=== PATIENT | female | born 1960 | race Caucasian/White ===

== ENCOUNTER → 2020-11-02 10:25 | Outpatient (CLI) | payer OTHER, SELFPAY ==
--- NOTE | 2020-11-02 10:26 | DI.US.S_ITS ---
PROCEDURE: US PELVIC COMPLETE INDICATIONS: MASS TECHNIQUE: Real-time scanning was performed of the pelvic organs, with image documentation. Additional endovaginal scanning was necessary due to incomplete visualization of the adnexal and endometrial structures by transabdominal scanning. COMPARISON: None. FINDINGS: Uterus: Uterus is normal in size at 6.9 x 2.7 x 3.7 cm. Uterus is retroverted. The endometrium measures 1.9 mm in combined thickness. Ovaries: There is a large 14.2 x 9.9 x 11.0 centimeter complex right adnexal cyst. Left ovary measures 2.2 x 1.1 x 1.0 centimeters and appears sonographically normal. Other: No pathologic free abdominal or pelvic fluid. IMPRESSION: 14.2 x 9.9 x 11.0 centimeter complex right adnexal cyst. Lesion may represent a large endometrioma, however other neoplastic processes including malignancy are not excluded by this study. Recommend gynecologic consultation and MRI of the pelvis for additional evaluation. Dictated by: Kelsie Bird MD, PhD on 11/02/2020 at 13:26 Approved by: Kelsie Bird MD, PhD on 11/02/2020 at 13:29
== END ==
PROVIDERS: Family Provider Family Medicine; PCP Physician Assistant; Referring Provider Physician Assistant; Visit Provider Physician Assistant
DX: R19.00 Intra-abdominal and pelvic swelling, mass and lump, unspecified site (principal)
CPT/HCPCS: 76830; 76856

== ENCOUNTER → 2020-11-11 14:00 | Outpatient (CLI) | payer OTHER, SELFPAY ==
[2020-11-11 15:14] LABS: Cancer Antigen 125 12.7 U/mL (0-35)
[2020-11-13 13:33] LABS: Human Epididymis Prot 4 66.2 pmol/L (0.0-96.5)
== END ==
PROVIDERS: Family Provider Family Medicine; PCP Physician Assistant; Referring Provider Obstetrics & Gynecology; Visit Provider Obstetrics & Gynecology
DX: R19.00 Intra-abdominal and pelvic swelling, mass and lump, unspecified site (principal); R19.09 Other intra-abdominal and pelvic swelling, mass and lump
CPT/HCPCS: 36415; 86304; 86305

== ENCOUNTER → 2020-11-14 12:13 | Outpatient (CLI) | payer OTHER, SELFPAY ==
[2020-11-14 20:06] LABS: COVID19 - ORCAS (NP or Nasal) Negative (Negative)
== END ==
PROVIDERS: Family Provider Family Medicine; PCP Physician Assistant; Visit Provider Family Medicine
DX: Z20.822 Contact with and (suspected) exposure to COVID-19 (principal)
CPT/HCPCS: U0003

== ENCOUNTER 2020-11-15 09:30 | Day surgery (SDC) | payer OTHER, SELFPAY ==
[2020-11-14 08:12] VITALS: BMI 21.6
--- NOTE | 2020-11-15 | PATH_ITS ---
[facility] Accession Number: [id number] . 01 Material submitted: . ovary - BILATERAL FALLOPIAN TUBES AND OVARIES . 01 Clinical history: . LAP LOI SALPINGO-OOPHORECTOMY? OPEN . 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 Right fallopian tube with no evidence of atypia or malignancy. Left ovary with benign epithelial inclusion cysts (1-3 mm); negative for atypia or malignancy. Left fallopian tube with a benign paratubal cyst (20 mm); negative for atypia or malignancy. [facility] 11/18/2020 1644 Local . 02 Electronically signed: . Janie Dowd MD, Pathologist NPI- [id number] . 01 Gross description: . The specimen is received in formalin, labeled bilateral fallopian tubes and ovaries and consists of a 90-gram, 12.5 x 8.2 x 6.0 cm previously disrupted ovary with a gold smooth focally hemorrhagic external surface. Opening reveals a gold-pink wrinkled inner lining with no papillary excrescences. The wall thickness ranges from 0.1-0.3 cm. The attached fallopian tube measures 6.5 cm in length by 0.8 cm in diameter and displays a gold-pink smooth serosa. Sectioning reveals a gold-pink mucosa and a stellate lumen measuring 0.3 cm in diameter. Also received is a 2 gram, 2.0 x 1.5 x 1.0 cm ovary with a gold, cerebriform external surface. Sectioning reveals multiple gold, smooth walled cysts ranging from 0.1-0.3 cm. The attached fallopian tube measures 5.0 cm in length by 0.8 cm in diameter, and displays a gold-pink smooth serosa with a 2.0 x 1.0 x 1.0 cm paratubal cyst near the fimbria. Sectioning reveals a gold-pink mucosa and a stellate lumen measuring 0.3 cm in diameter. Machine Heel Sprayer sections are submitted. . A1-A5: Machine Heel Sprayer cystic ovary (external surface inked blue). A6: Fallopian tube attached to cystic ovary, bisected fimbria, margin (blue/en face) and central cross-sections. A7: Other ovary, internet sales representative cross-sections. A8-A9: Other fallopian tube, bisected fimbria, margin (en face/blue) and central cross-sections. ([id number]) /MRV 11/16/2020 1032 Local . 02 Pathologist provided ICD-10: D27.0 . 02 CPT . 108919 Performed at: 01 [facility] Cytology [address] [place] [address], [place], [place] [id number] MD Kalen Walter MD Phone: [phone] Performed at: 02 [facility] [address] [place], [place] [id number] MD Rosanna Gibson MD Phone: [phone]
[2020-11-15 10:06] VITALS: BMI 21.6
[2020-11-15] MEDS: LACTATED RINGERS 1,000 ML 100 ML IV ×2 (10:27→12:25)
[2020-11-15 10:32] VITALS: BP 122/81; PULSE 56; RESP 12; TEMP 36.7; O2SAT 100
--- NOTE | 2020-11-15 10:52 | PM.PREOP ---
Pre-operative Note COVID-19 COVID-19 status: Negative Result date/Date tested (Pos, Neg/Pending): 11/14/20 Interval Note History & Physical reviewed/Exam performed by Physician: Yes Changes to H&P: No H&P completed within 30 days and has changed as indicated here:: 11/11/20
--- NOTE | 2020-11-15 11:41 | SUR.OPER ---
Lithotomy on padded OR bed, head on pillow, arms secured on padded arm boards at <90 degrees abduction. Legs secured in padded yellow fins stirrups.
--- NOTE | 2020-11-15 12:11 | PATH_ITS ---
Note [facility] Accession Number: [id number] TESTS RESULT FLAG UNITS REF RANGE LAB Clinician Provided Cytology Information No. of containers..01 Other (Miscellaneous) 01 PELVIC WASHINGS DIAGNOSIS: 02 PELVIC WASHINGS NEGATIVE FOR MALIGNANT CELLS. THIS INTERPRETATION INCLUDES EVALUATION OF A CELL BLOCK. Pathologist ICD10: 02 N83.201 02 Janie Dowd MD, Pathologist NPI- [id number] Troy Hassan, Coal Dumping Equipment Operator ([facility]) 01 35 CC, YELLOW, CLEAR RECEIVED: FRESH IN ORANGE CAP CONTAINER. /[facility] 11/16/2020 09 Local FLAG LEGEND: L-Low Normal,H-High Normal,LL-Alert Low,HH-Alert High <-Panic Low,>-Panic High,A-Abnormal,AA-Critical Abnormal Performed at: 01 =Z [facility] [address], [place] [address] Kalen Walter MD, 02 [facility] [address] [place] [phone] Rosanna Gibson MD, Performed at: 01 [facility] [address], [place], [place] [id number] MD Kalen Walter MD Phone: [phone]
--- NOTE | 2020-11-15 12:12 | PATH_ITS ---
Note [facility] Accession Number: [id number] TESTS RESULT FLAG UNITS REF RANGE LAB Clinician Provided Cytology Information No. of containers..01 Other (Miscellaneous) RIGHT OVARIAN CYST FLUID DIAGNOSIS: 02 RIGHT OVARIAN CYST FLUID NEGATIVE FOR MALIGNANT CELLS. THIS INTERPRETATION INCLUDES EVALUATION OF A CELL BLOCK. Pathologist ICD10: 02 N83.201 02 Janie Dowd MD, Pathologist NPI- [id number] Troy Hassan, Pediatric Assistant ([facility]) 01 25 CC, YELLOW, HAZY RECEIVED: FRESH IN ORANGE CAP CONTAINER. /[facility] 11/16/2020 0909 [facility] FLAG LEGEND: L-Low Normal,H-High Normal,LL-Alert Low,HH-Alert High <-Panic Low,>-Panic High,A-Abnormal,AA-Critical Abnormal Performed at: 01 =Z [facility] Cytology [address], [place] [address] Kalen Walter MD, 02 LCLWA [facility] [address] [place] [id number] Rosanna Gibson MD, Performed at: 01 [facility] [address], [place], [place] [id number] MD Kalen Walter MD Phone: [phone]
[2020-11-15] MEDS: BUPIVACAINE 0.25% W/ EPI 30 ML VIAL INJ (12:26)
--- NOTE | 2020-11-15 12:34 | P.OP_ITS ---
Operative Date/Time/Diagnoses Date of procedure: 11/15/20 Time of procedure: 12:34 Pre-op diagnosis: 15 cm right ovarian cyst Post-op diagnosis: same Procedure & Clinicians Procedure: Procedures Operation Date: 11/15/20 10:45 Actual Procedure Side Surgeon p Laparoscopic Salpingo-oophorectomy Bilateral Sara Hilario MD Indications: 15 cm right ovarian mass Surgeon: Sara Hilario Safety Belt Installer: Juan Reynaga Anesthesia Type: General and Local Operative Notes Findings: 15 cm ovarian cyst Normal tubes bilaterally Normal left ovary Normal appendix Normal uterus Normal liver and gallbladder Closure Type: primary Specimen(s): left tube & ovary and right tube & ovary Estimated blood loss (mL): 5 Blood products transfused: none Procedure in detail: The patient was taken to the operating room where she was placed in the dorsal supine position. After adequate general endotracheal anesthesia was achieved, she was placed in the dorsal lithotomy position, and prepped and draped in the usual sterile fashion. A time-out was performed. A bivalve speculum was placed into the vagina and the anterior lip of the cervix grasped with a single-tooth tenaculum. The cervical os was sequentially dilated until the Zumi uterine manipulator could pass easily into the endometrial cavity. The single-tooth tenaculum was removed from the anterior lip of the cervix. The bivalve speculum was removed from the vagina. Attention was then turned to the abdomen where 6 cc of 0.25% Marcaine with epinephrine were injected in the umbilical fold. A 5 mm incision was made. The Veress needle was placed into the peritoneal cavity, and its placement confirmed by aspiration and drop test. The abdominal cavity was insufflated with 2.8 L of CO2. The Veress needle was removed, and a 5 mm trocar was placed without difficulty. Two other trocars were placed 4 cm lateral to the midline at the level of the umbilicus after 6 cc of 0.25% Marcaine with epinephrine were injected and 5 mm incisions were made. The uterus was lifted out of the pelvis. There was a cystic mass on the right ovary measuring 15 cm. In and aspirated ir was placed into the mass and approximately 400 cc of clear yellow fluid were drained. Before the aspirate air was removed from the cyst, a clamp was placed over the area of puncture so as not to spill. The tube and ovary were grasped with an atraumatic grasper. Using the PlasmaKinetic was settings at 40 w, the infundibulopelvic ligament on the right side was cauterized and cut with the PlasmaKinetic all the way to the cornua of the uterus. The tube was amputated at the cornua. The tube and ovary removal procedure were repeated on the patient's left side. 6 cc of 0.25% Marcaine with epinephrine were injected above the pubic symphysis. An 11 mm incision was made. An 11 mm trocar was placed under direct visualization. A small endobag was placed through the suprapubic trocar. The ovaries and tubes were placed into the bag. The trocar was removed. The bag was pulled up through the incision. The fascial incision was extended slightly and the bag pulled through the suprapubic incision. The pelvis was copiously irrigated with warm normal saline. There was no bleeding noted. The instruments were removed from the abdomen. The CO2 was allowed to escape. The trocars were removed. The fascia on the suprapubic incision was reapproximated with 0 Vicryl in a running fashion. All of the incisions were closed with 4 0 Biosyn in a subcuticular fashion. Steri-Strips and Allevyn dressings were applied. The Zumi uterine manipulator was removed from the uterus. Sponge, lap, and instrument counts were correct x2. The patient tolerated the procedure well, and was taken to PACU in stable condition. Complications: none Post-operative Condition: stable Disposition: PACU Plan for aftercare: Home after recovery
[2020-11-15 12:42] VITALS: BP 118/75; PULSE 73; RESP 12; O2SAT 96
[2020-11-15 12:47] VITALS: BP 125/75; PULSE 70; RESP 11; O2SAT 100
[2020-11-15] MEDS: ONDANSETRON 4 MG/2 ML INJ IV (12:49)
[2020-11-15] MEDS: TRAMADOL 50 MG TABLET PO (12:49)
[2020-11-15 12:52] VITALS: BP 110/72; PULSE 66; RESP 11; O2SAT 100
[2020-11-15 12:57] VITALS: BP 118/75; PULSE 61; RESP 12; O2SAT 100
[2020-11-15 13:10] VITALS: BP 113/82; PULSE 63; RESP 16; O2SAT 98
== END 2020-11-15 13:32 | disposition home or self-care (01) ==
PROVIDERS: Family Provider Family Medicine; PCP Physician Assistant; Referring Provider Obstetrics & Gynecology; Visit Provider Obstetrics & Gynecology
PROC: 0UT24ZZ Resection of Bilateral Ovaries, Percutaneous Endoscopic Approach (ICD-10-PCS; CPT 58661; principal; 2020-11-15 10:45)
DX: N83.201 Unspecified ovarian cyst, right side (principal); I73.00 Raynaud's syndrome without gangrene
CPT/HCPCS: 58661; J0330; J1100; J1170; J1885; J2405; J2704; J3010

== ENCOUNTER → 2021-02-08 10:13 | Outpatient (CLI) | payer OTHER, SELFPAY | PROVIDERS: Family Provider Family Medicine; PCP Physician Assistant; Visit Provider Physician Assistant | DX: Z01.818 Encounter for other preprocedural examination (principal) | CPT/HCPCS: 87797 ==

== ENCOUNTER → 2021-03-03 08:23 | Outpatient (CLI) | payer OTHER, SELFPAY ==
[2021-03-03 20:53] LABS: COVID19 - ORCAS (NP or Nasal) Negative (Negative)
== END ==
PROVIDERS: Family Provider Family Medicine; PCP Physician Assistant; Visit Provider Physician Assistant
DX: Z01.812 Encounter for preprocedural laboratory examination (principal)
CPT/HCPCS: U0003

== ENCOUNTER → 2021-04-13 09:30 | Outpatient (CLI) | payer OTHER, SELFPAY ==
[2021-04-13 19:17] LABS: Add Manual Diff / Slide Review NO; Basophils Absolute Auto 100 /uL (0-100); Basophils Percent Auto 1.2 % (0-2); Eosinophils Absolute Auto 100 /uL (0-450); Eosinophils Percent Auto 2.9 % (2-4); Hematocrit 42.9 % (36-46); Hemoglobin 14.8 g/dL (12.0-16.0); Lymphocytes Absolute Auto 1800 /uL (1100-4500); Lymphocytes Percent Auto 37.2 % (25-40); Mean Corpuscular HGB Conc 34.5 % (30-36); Mean Corpuscular Hemoglobin 31.5 PG (26-34); Mean Corpuscular Volume 91.3 fL (80-100); Monocytes Absolute Auto 400 /uL (0-900); Monocytes Percent Auto 7.6 % (3-14); Neutrophils Absolute Auto 2500 /uL (1500-7000); Neutrophils Percent Auto 51.1 % (50-75); Platelet Count 279 X10^3/uL (150-400); Red Cell Distribution Width 14.2 % (11.6-14.8); White Blood Cell Count 4.8 X10^3/uL (4.5-11.0)
[2021-04-13 19:22] LABS: Alanine Aminotransferase 26 IU/L (<35); Albumin 4.5 g/dL (3.5-5.0); Albumin Globulin Ratio 1.6 (1.0-2.8); Alkaline Phosphatase 64 U/L (38-126); Aspartate Aminotransferase 38 IU/L (14-36); BUN Creatinine Ratio 18.8 (6-22); Bilirubin Total 0.9 mg/dL (0.2-1.3); Blood Urea Nitrogen 12 mg/dL (7-17); Calcium 10.2 mg/dL (8.4-10.2); Carbon Dioxide 33 mmol/L (22-32); Chloride 101 mmol/L (98-107); Cholesterol 286 mg/dL (140-199); Estimated Glomerular Filt Rate > 60.0 mL/min (>60); Globulin 2.9 g/dL (1.7-4.1); Glucose 89 mg/dL (80-110); HDL Cholesterol 106 mg/dL (40-60); HEMOLYSIS < 15 (0-50); LDL Cholesterol Calculated 167 mg/dL (<100); Sodium 138 mmol/L (137-145); Total Protein 7.4 g/dL (6.3-8.2); Triglycerides 67 mg/dL (35-150)
== END ==
PROVIDERS: Family Provider Family Medicine; PCP Physician Assistant; Referring Provider Physician Assistant; Visit Provider Physician Assistant
DX: E78.00 Pure hypercholesterolemia, unspecified (principal); R94.31 Abnormal electrocardiogram [ECG] [EKG]
CPT/HCPCS: 80053; 80061; 84443; 85025

== ENCOUNTER 2023-06-13 14:24 | Inpatient (IN) | payer OTHER, SELFPAY ==
[2023-06-12 13:27] VITALS: BMI 21.6
[2023-06-13] VITALS (9 sets, daily range): BP systolic 130–151; BP diastolic 81–100; PULSE 45–92; RESP 12–18; TEMP 36.5–36.9; O2SAT 91–100; BMI 21.6
--- NOTE | 2023-06-13 | DI.RAD.S_ITS ---
PROCEDURE: XR KNEE RT 1TO2V INDICATIONS: RIGHT TIBIAL PLATEAU ORIF TECHNIQUE: Multiple intraoperative views of the knee were acquired. COMPARISON: None. FINDINGS: Bones: Intraoperative views during tibial plateau ORIF demonstrate intact hardware. IMPRESSION: Intraoperative views during tibial plateau ORIF demonstrate intact hardware. Dictated by: Herb Tim M.D. on 06/13/2023 at 18:13 Approved by: Herb Tim M.D. on 06/13/2023 at 18:14
--- NOTE | 2023-06-13 15:17 | PM.PREOP ---
Pre-operative Note Interval Note History & Physical reviewed/Exam performed by Physician: Yes Changes to H&P: No
[2023-06-13] MEDS: TRANEXAMIC ACID 1,000 MG in SODIUM CHLORIDE 0.9% 100 ML 200 MG IV (16:08)
[2023-06-13] MEDS: CEFAZOLIN 2 GM/100 ML PREMIX 100 ML IV (16:12)
--- NOTE | 2023-06-13 16:48 | SUR.OPER ---
Supine on padded Parveen table flat frame, head on pillow, arms secured on padded arm boards at <90 degrees abduction, legs uncrossed, safety belt at waist bump under right thigh and leg, tape over blanket over lower left leg .
[2023-06-13] MEDS: BUPIVACAINE 0.5% (PF) 30 ML, EPINEPHrine 0.15 MG INJ (17:03)
[2023-06-13] MEDS: LACTATED RINGERS 1,000 ML 42 ML IV (17:34)
--- NOTE | 2023-06-13 17:46 | PM.OP.1 ---
Operative Date/Time/Diagnoses Date of procedure: 06/13/23 Time of procedure: 17:47 Pre-op diagnosis: Right tibial plateau fracture Post-op diagnosis: same Procedure & Clinicians Procedure: ORIF right tibial plateau fracture (unicondylar) Same procedure as scheduled: Yes Indications: This is a 62-year-old female who sustained a right tibial plateau fracture while skiing. We previously discussed indications for surgery including to restore the articular surface and alignment. Risks and benefits of surgery were discussed again including the risk of infection, damage to internal structures, bleeding, nerve injury, instability, need for revision surgery, blood clots, anesthesia and . No guarantees were made regarding outcomes. Patient expressed understanding and accepted these risks and wished to go forward with surgery and consent was signed. Surgeon: Juan R Thompson Technical Data Analyst: Tae Roberts Anesthesia Type: General Operative Notes Findings: Right lateral plateau fracture Closure Type: primary Specimen(s): none sent Prosthetic devices, grafts, tissues, transplants, or devices: Bautista and Nephew proximal tibia periarticular locking plate Estimated Blood Loss (mL): 20 Blood products transfused: none Tourniquet time (min): 60 Procedure in detail: Patient was met in the preoperative holding area. Her right lower extremity was marked with my initials. We again went over the risks and benefits of surgery as noted above. She agreed to go forward with the surgery and she was brought back to the operating room and placed supine on the operating table. She underwent smooth induction of anesthesia. All bony prominences were padded. A bump was placed under her right hip. A sterile tourniquet was placed on the right upper thigh. The right lower extremity was prepped and draped in the standard sterile fashion. A time-out was performed in my initials were again confirmed the right lower extremity. I began with a anterolateral approach to the tibia. Incision was taken down to fascia. A curvilinear incision was made through the fascia including the IT band down to Gerdy's tubercle and over the anterior compartment. The anterior compartment was then elevated as minimally as possible. The capsule was elevated off of the tibia and the undersurface of the meniscus was inspected. Fracture was encountered. Using a osteotome a small window was made and a bone tamp was used to lift up the posterior slope of the lateral plateau so that it was in anatomic alignment. The void was then filled with cancellous bone chips and calcium phosphate. A periarticular locking plate was then selected and placed on the anterolateral tibia. A periarticular clamp was used to obtain compression from lateral to medial across the joint. Three locking screws were then placed in a rafting fashion under the joint surface. Two shaft screws were then placed. Fluoroscopy was used to confirm screw position length and alignment. The wounds were thoroughly irrigated. The joint was then closed in the capsule was then closed by tying it to the plate. The IT band was also closed and the fascia was closed over the top of the plate. Distally the fascia was left released in order to prevent compartment syndrome. The skin was then closed with 2-0 Vicryl and Monocryl. She was placed back into a hinged knee brace locked in extension. He was woken from anesthesia without any complications and transported to the postoperative recovery unit in stable condition. Assisting participation: This operation could not have been safely performed (without compromising the technical results or length of the procedure) without the assistance of a skilled surgical device sales representative. The surgical device sales representative was medically necessary for proper positioning, retraction and manipulation of instruments, proper exposure, graft prep, and manipulation of tissue. Complications: none Post-operative Condition: stable Disposition: PACU Plan for aftercare: She will be nonweightbearing for 3 months. For the 1st 2 weeks she will be locked in extension to allow the wound to heal. Afterwards she will start working on range motion exercises by herself and with physical therapy with the brace completely unlocked. Okay for dressings to come off in 3 days in order to shower. Let warm soap and water run over the incisions. Pat dry and ensure that the incision is completely dry before placing new clean dressings. If there are Steri-Strips, ensure that it is dry underneath. If water gets under the Steri-Strips, remove them. Keep the new dressings on for 2 more days. At postoperative day 5, remove all dressings and shower daily and let air dry.
[2023-06-13] MEDS: OXYCODONE IR 5 MG TABLET PO (18:30)
[2023-06-13] MEDS: ONDANSETRON 4 MG/2 ML INJ IV (18:30)
== END 2023-06-13 18:50 | disposition home or self-care (01) | DRG 494 ==
PROVIDERS: Admitting Provider Orthopaedic Surgery; Family Provider Family Medicine; PCP Family Medicine; Referring Provider Orthopaedic Surgery; Visit Provider Orthopaedic Surgery
PROC: 0QSG04Z Reposition Right Tibia with Internal Fixation Device, Open Approach (ICD-10-PCS; principal; 2023-06-13 15:15)
DX: S82.121A Displaced fracture of lateral condyle of right tibia, initial encounter for closed fracture (principal); X58.XXXA Exposure to other specified factors, initial encounter; Y93.23 Activity, snow (alpine) (downhill) skiing, snowboarding, sledding, tobogganing and snow tubing
CPT/HCPCS: 73560; 76000; J0171; J0690; J1100; J2405; J2704; J3010

== ENCOUNTER → 2023-09-27 09:01 | Outpatient (CLI) | payer MEDICARE, OTHER, SELFPAY ==
[2023-09-27 18:19] LABS: Add Manual Diff / Slide Review NO; Basophils Absolute Auto 0 /uL (0-100); Basophils Percent Auto 1.1 % (0-2); Eosinophils Absolute Auto 100 /uL (0-450); Eosinophils Percent Auto 2.5 % (2-4); Hematocrit 43.5 % (36-46); Hemoglobin 14.7 g/dL (12.0-16.0); Lymphocytes Absolute Auto 1600 /uL (1100-4500); Lymphocytes Percent Auto 36.2 % (25-40); Mean Corpuscular HGB Conc 33.8 % (30-36); Mean Corpuscular Hemoglobin 30.7 PG (26-34); Mean Corpuscular Volume 90.7 fL (80-100); Monocytes Absolute Auto 300 /uL (0-900); Neutrophils Absolute Auto 2300 /uL (1500-7000); Neutrophils Percent Auto 53.2 % (50-75); Platelet Count 225 X10^3/uL (150-400); Red Blood Cell Count 4.79 X10^6/uL (4.0-5.2); Red Cell Distribution Width 13.5 % (11.6-14.8); White Blood Cell Count 4.4 X10^3/uL (4.5-11.0)
[2023-09-27 18:33] LABS: Alanine Aminotransferase 27 IU/L (<35); Albumin 4.4 g/dL (3.5-5.0); Albumin Globulin Ratio 1.8 (1.0-2.8); Alkaline Phosphatase 70 U/L (38-126); Aspartate Aminotransferase 35 IU/L (14-36); BUN Creatinine Ratio 17.1 (6-22); Bilirubin Total 0.8 mg/dL (0.2-1.3); Blood Urea Nitrogen 12 mg/dL (7-17); Calcium 9.7 mg/dL (8.4-10.2); Carbon Dioxide 28 mmol/L (22-32); Chloride 105 mmol/L (98-107); Cholesterol 300 mg/dL (140-199); Estimated Glomerular Filt Rate > 60 mL/min (>60); Globulin 2.4 g/dL (1.7-4.1); Glucose 89 mg/dL (80-110); HDL Cholesterol 97 mg/dL (40-60); HEMOLYSIS 39 (0-50); LDL Cholesterol Calculated 186 mg/dL (<100); Sodium 137 mmol/L (137-145); Total Protein 6.8 g/dL (6.3-8.2); Triglycerides 85 mg/dL (35-150)
== END ==
PROVIDERS: Family Provider Family Medicine; PCP Family Medicine; Referring Provider Family Medicine; Visit Provider Family Medicine
DX: Z13.0 Encounter for screening for diseases of the blood and blood-forming organs and certain disorders involving the immune mechanism (principal); E78.2 Mixed hyperlipidemia; R74.8 Abnormal levels of other serum enzymes; Z13.1 Encounter for screening for diabetes mellitus
CPT/HCPCS: 80053; 80061; 85025

== ENCOUNTER → 2023-12-02 14:07 | Outpatient (CLI) | payer MEDICARE, OTHER, SELFPAY ==
--- NOTE | 2023-12-02 14:09 | DI.RAD.S_ITS ---
PROCEDURE: XR DEXA AXIAL SKELETON INDICATIONS: Post menopausal COMPARISON: None. FINDINGS: Lumbar Spine: Bone mineral density 0.826 g/cm2, T score -2.0 Right Hip: Bone mineral density 0.757 g/cm2, T score -1.5 Or a Femoral Neck: Bone mineral density 0.664 g/cm2, T score -1.7 Left Forearm: Bone mineral density 0.485 g/cm2, T score -1.7 Fracture Risk Calculation (when applicable): 10-year fracture risk of a major osteoporotic fracture 8.5% and of a hip fracture 1% (T score greater or equal to -1.0 to: NORMAL) (T score from -1.1 to -2.4: OSTEOPENIA) (T score less than or equal to -2.5: OSTEOPOROSIS) IMPRESSION: There is osteopenia of the lumbar spine, right femoral neck and left forearm. Follow-up guidelines as follows: Osteoporosis: Consider a repeat DEXA and Vertebral Fracture Assessment (VFA) exam in 2 years or sooner if medically necessary, to reassess this patient's status. Osteopenia: Consider a repeat DEXA in 2-3 years to reassess this patient's status, or if there is a new clinical indication. Normal: Consider a repeat DEXA in 5 years or sooner, or if there is a new clinical indication. All treatment decisions require clinical judgment and consideration of individual patient factors, including patient preferences, comorbidities, previous drug use, risk factors not captured in the FRAX model (e.g., frailty, falls, vitamin D deficiency, increased bone turnover, interval significant decline in bone density ) and possible under- or over-estimation of fracture risk by FRAX. In addition, the NOF Guide recommends that FDA-approved medical therapies be considered in postmenopausal women and men age >= 50 years with a: * Hip or vertebral (clinical or morphometric) fracture * T-score of <=-2.5 at the spine or hip * Ten-year fracture probability by FRAX of >= 3% for hip fracture or >=20% for major osteoporotic fracture. People with diagnosed cases of osteoporosis or at high risk for fracture should have regular bone mineral density tests. For patients eligible for Medicare, routine testing is allowed once every 2 years. The testing frequency can be increased to one year for patients who have rapidly progressing disease, those who are receiving or discontinuing medical therapy to restore bone mass, or have additional risk factors. Dictated by: Himanshu Trinidad M.D. on 12/02/2023 at 17:03 Approved by: Himanshu Trinidad M.D. on 12/02/2023 at 17:06
== END ==
PROVIDERS: Family Provider Family Medicine; PCP Family Medicine; Referring Provider Family Medicine; Visit Provider Family Medicine
DX: Z78.0 Asymptomatic menopausal state (principal); M85.89 Other specified disorders of bone density and structure, multiple sites
CPT/HCPCS: 77080; 77081

== ENCOUNTER → 2024-01-06 10:44 | Outpatient (CLI) | payer MEDICARE, OTHER, SELFPAY ==
--- NOTE | 2024-01-06 | DI.CT.S_ITS ---
PROCEDURE: CT LE LT W CON INDICATIONS: eval left ankle TECHNIQUE: Noncontrast 3-mm axial sections acquired from the distal tibial shaft to the talar dome, with coronal and sagittal reformats. For radiation dose reduction, the following was used: automated exposure control, adjustment of mA and/or kV according to patient size. COMPARISON: [facility] ([facility]), CR, XR ANKLE LT MIN 3V, 12/31/2023, 10:08. FINDINGS: Image quality: Excellent. Bones: There is a comminuted minimally displaced fracture of the distal tibia involving the medial malleolus as well as the anterior medial tibial plafond and tibial metaphysis. There is less than 1 mm step-off at the tibial plafond articular surface. No widening of the medial tibiotalar clear space or distal tibiofibular interosseous space. No osteochondral lesion in the talar dome. The remaining hindfoot bones appear to be intact. No significant arthritic changes. Soft tissues: Soft tissue edema is seen surrounding the ankle extending into the dorsum of the foot. There is a moderate tibiotalar effusion. The articular cartilages, ligaments, and tendons are not well evaluated with CT. The visualized musculature is normal in bulk. IMPRESSION: Comminuted minimally displaced intra-articular fracture of the distal tibia involving the medial malleolus and anterior medial tibial plafond and without significant step-off at the articular surface. Approved by: Oscar Marcano M.D. on 01/06/2024 at 11:13
== END ==
PROVIDERS: Family Provider Family Medicine; PCP Family Medicine; Referring Provider Orthopaedic Surgery; Visit Provider Orthopaedic Surgery
DX: S82.55XA Nondisplaced fracture of medial malleolus of left tibia, initial encounter for closed fracture (principal); X58.XXXA Exposure to other specified factors, initial encounter
CPT/HCPCS: 73700

== ENCOUNTER → 2024-12-31 11:04 | Outpatient (CLI) | payer MEDICARE, OTHER, SELFPAY ==
[2024-12-31 19:42] LABS: Alanine Aminotransferase 28 IU/L (<35); Albumin 4.3 g/dL (3.5-5.0); Albumin Globulin Ratio 1.8 (1.0-2.8); Alkaline Phosphatase 64 U/L (38-126); Blood Urea Nitrogen 13 mg/dL (7-17); Calcium 10.0 mg/dL (8.4-10.2); Carbon Dioxide 30 mmol/L (22-32); Chloride 102 mmol/L (98-107); Cholesterol 213 mg/dL (140-199); Estimated Glomerular Filt Rate > 60 mL/min (>60); Globulin 2.4 g/dL (1.7-4.1); Glucose 98 mg/dL (70-99); HDL Cholesterol 109 mg/dL (40-60); HEMOLYSIS < 15 (0-50); Potassium 4.5 mmol/L (3.4-5.1); Sodium 138 mmol/L (137-145); Total Protein 6.7 g/dL (6.3-8.2); Triglycerides 49 mg/dL (35-150)
== END ==
PROVIDERS: Family Provider Family Medicine; PCP Family Medicine; Visit Provider Family Medicine
DX: E78.49 Other hyperlipidemia (principal)
CPT/HCPCS: 80053; 80061

== ENCOUNTER → 2025-03-05 15:31 | Outpatient (CLI) | payer MEDICARE, OTHER, SELFPAY ==
--- NOTE | 2025-03-05 15:33 | DI.CT.S_ITS ---
PROCEDURE: CT LUNG LOW DOSE SCREENING INDICATIONS: screening, FHX: + M, F, Br -all of lung cancer. TECHNIQUE: Noncontrast 2.0-2.5 mm thick sections acquired from the pulmonary apices to the posterior costophrenic angles. 7 mm thick axial MIP, and 5 mm coronal and sagittal reformats were then acquired. For radiation dose reduction, the following was used: automated exposure control, adjustment of mA and/or kV according to patient size. COMPARISON: None. FINDINGS: Image quality: Diagnostic. Lower Neck: No enlarged lymph nodes. Thyroid: No thyroid nodules which require sonographic follow up, per consensus guidelines. Axillae: No enlarged lymph nodes. Chest Wall: Unremarkable. Bones: Unremarkable. Lungs and Pleura: No pneumothorax or pleural effusions. Multifocal areas of bronchiectasis, with bronchial wall thickening and tree-in-bud nodularity in the right middle lobe and lingula. Small solid nodules measuring up to 6 millimeters in the right middle lobe (3/170), favored infectious/inflammatory. Heart: Heart size is normal. No pericardial effusion. Thoracic Vessels: The aorta and pulmonary arteries demonstrate normal size. Mediastinum and Alena: No enlarged lymph nodes. Esophagus: No wall thickening. Small hiatal hernia. Upper Abdomen: Visualized upper abdomen solid organs and bowel loops appear normal. IMPRESSION: Multifocal bronchiectasis and mucus plugging with tree in bud nodularity in the right middle lobe and lingula. Nodules measuring up to 6 mm in the right middle lobe, favored infectious/inflammatory. LUNG-RADS 0; recommend follow up in 3-6 months with LDCT to evaluate for resolution of infection/inflammation. Clinically Significant Non-pulmonary Findings: None. Dictated by: Agustina Orellana M.D. on 03/07/2025 at 0:44 Approved by: Agustina Orellana M.D. on 03/07/2025 at 0:50
== END ==
LOC: CT 15:32
PROVIDERS: Family Provider Family Medicine; PCP Family Medicine; Referring Provider Family Medicine; Visit Provider Family Medicine
DX: J47.9 Bronchiectasis, uncomplicated (principal); R91.1 Solitary pulmonary nodule; Z87.891 Personal history of nicotine dependence; Z80.1 Family history of malignant neoplasm of trachea, bronchus and lung
CPT/HCPCS: 71271